=== PATIENT | female | born 1995 | race Caucasian/White ===

== ENCOUNTER 2019-11-17 10:50 | Outpatient (CLI) | payer BC ==
[~2019-11-17 10:50] MED LIST: LORTAB ELIX0.5 MG/ML PO
[2019-11-17] MEDS ORDERED: TUMS ULTRA ST1000 MG PO (11:10)
== END 2019-11-17 11:37 | disposition home or self-care (01) ==
LOC: CANPRECLI → LDRO 10:50 → LDR 10:50 → LDRO 10:52 → LDR 10:52 → LDRO 11:37
DX: O62.9 Abnormality of forces of labor, unspecified (principal); Z3A.39 39 weeks gestation of pregnancy
CPT/HCPCS: OP

== ENCOUNTER 2019-11-17 11:05 | Outpatient (CLI) | payer BC ==
[~2019-11-17] VITALS: Ht 157.5 cm; Wt 63.2 kg
--- NOTE | 2019-11-17 10:30 | NUR ---
Pt arrives on unit ambulatory. States pressure x2 days that has increased today. Denies LOF, vaginal bleeding and reports GFM. Changed into clean gown. EFM and toco applied. VSS. SVE per this RN . Admission assessment completed. Dr. Casarez notified. Reactive FHR strip. Orders to recheck SVE x1 hour. If no change pt ok to discharge and follow-up as scheduled. Pt updated on POC. No questions or concers at this time.
[2019-11-17] MEDS ORDERED: TUMS ULTRA ST1000 MG PO (11:10)
[2019-11-17 11:32] VITALS: BP 118/72; PULSE 89; TEMP 98.6
== END 2019-11-17 11:39 | disposition home or self-care (01) ==
LOC: LDRO 11:05
DX: O62.9 Abnormality of forces of labor, unspecified (principal); Z3A.39 39 weeks gestation of pregnancy

== ENCOUNTER → 2019-11-23 | Outpatient (CLI) | payer BC ==
[~2019-11-23] MED LIST changes: +IBU600 MG PO; +PERCOCET 325 MG1 TA2 PO; +TUMS ULTRA ST1000 MG PO
== END ==
LOC: COL.LAB 08:00
DX: Z20.828 Contact with and (suspected) exposure to other viral communicable diseases (principal)

== ENCOUNTER 2019-11-24 05:58 | Inpatient (IN) | payer BC ==
[2019-11-24] VITALS (59 sets, daily range): BP systolic 95–136; BP diastolic 54–89; PULSE 68–116; TEMP 97.5–98.2
[~2019-11-24] VITALS: Ht 157.5 cm; Wt 62.7 kg
[~2019-11-24 05:58] MED LIST changes: -IBU600 MG PO; -PERCOCET 325 MG1 TA2 PO
--- NOTE | 2019-11-24 07:20 | NUR ---
0720- Pt. ambulatory to the unit with mother by her side. Pt orientated to room and changed into gown. 0725- EFM and TOCO on and tracing. Pt. reports GFM, denies LOF, blood or contractions. Vitals taken, assessment completed, IV started and fluids running. Consents signed and plan for the day discussed. Questions answered, call light within reach.
[2019-11-24 09:06] LABS: BASO % 0.5 % (0.0-2.0); EOS # 0.1 (0.0-0.7); EOS % 1.5 % (0-4.0); GRAN # 5.8 (1.4-6.5); LYMPH # 1.8 (1.2-3.4); LYMPH % 21.1 % (20.0-51.0); MEAN CELL VOLUME 88 fl (80.0-100.0); MEAN CORPUSCULAR HEMOGLOBIN 29 pg (27.0-31.0); MEAN CORPUSCULAR HGB CONC 33 g/dl (33.0-37.0); MEAN PLATELET VOLUME 10.2 fl (7.4-10.4); MONO # 0.8 (0.1-0.6); MONO % 9.4 % (1.7-9.3); PLATELET COUNT 236 K/mm3 (130-400); RED BLOOD COUNT 4.12 M/mm3 (4.10-5.30); REDCELL DISTRIBUTION WIDTH-CV 12.9 % (11.5-14.5)
[2019-11-24 09:07] LABS: HEMATOCRIT 36.1 % (37.0-47.0)
--- NOTE | 2019-11-24 09:31 | NUR ---
09- Dr. Casarez to bedside. Plan for the day discussed. Bedside ultrasound done by provider. head noted to be down. RN remains at bedside. 922- Pt. up to the bathroom. 927- Pt. back in bed, EFM and TOCO on and tracing. Dr. Casarez back at bedside. 930- SVE /-2. AROM, small amount of clear fluid noted. Pt. tolerated procedure well. Provider discussed plan of the day again, questions answered. Call light within reach.
--- NOTE | 2019-11-24 10:35 | NUR ---
1016- Pt. up to the bathroom. RN at bedside. 1020- EFM and TOCO on and tracing. Maternal O2 on. Pt and room set up for epidural procedure. RN remains at bedside. 1023- SHAUN Jensen at the bedside. Discussed procedure and risk, answered questions. RN remains at bedside. 1034- Test dose administered, see anesthesia record. RN remains at bedside.
--- NOTE | 2019-11-24 18:20 | NUR ---
Report received from CLEMENTE Zelaya. Pt sitting up in bed. Emesis noted at this time. 1830: at bedside and reviews FHR strip. SVE 6/100/0 per provider. Pitocin increased to 10mus per verbal orders. Plan of care explained to pt and mother.
--- NOTE | 2019-11-24 19:50 | NUR ---
Pt called out stating she was feeling a lot of pressure. SVE 9/100/0. Pericare provided and pt repositioned to high fowlers, zaheer position. 1999: at nurses station and updated on pts status. See physican notification. 2018: SVE C/+1. Simeon removed and pt educated on pushing with contractions. 2022: Pt begins pushing with contractions with this RN. 2031: at nurses station and updated on pt moving vertex well. 2035: at bedside and pt pushes once with provider. Pt prepped for delivery after pushing and repositioned into footplates. 2041: Spontaneous delivery of viable female by . Pitocin stopped per protocol. Infant to mothers chest where dried and stimulated by nursery RN. Care of infant assumed by Frederick CORNEJO. 2044: Spontaneous delivery of placenta by . Pitocin resummed at 333mus/hr per protocol. Second degree laceration repaired by . Pericare provided,pads changed and ice pack applied. Pt repositioned in bed and plan of care and safety precautions explained to pt and mother who verbalize their understanding. See doctor dications and anesthesia records. Call light within reach.
[2019-11-25] VITALS: BP 100/56; PULSE 84; TEMP 98.1
[2019-11-25 04:00] VITALS: BP 104/58; PULSE 67; TEMP 97.9
[2019-11-25 07:23] LABS: HEMOGLOBIN 11.3 g/dl (12.5-16.0)
[2019-11-25 07:30] VITALS: BP 92/50; PULSE 74; TEMP 98
[2019-11-25 07:39] LABS: HEMATOCRIT 33.9 % (37.0-47.0)
[2019-11-25] MEDS ORDERED: IBU600 MG PO (09:59)
[2019-11-25] MEDS ORDERED: PERCOCET 325 MG1 TA2 PO (10:00)
[2019-11-25 12:30] VITALS: BP 100/57; PULSE 71; TEMP 98.5
[2019-11-25 17:00] VITALS: BP 103/60; PULSE 72; TEMP 98.3
[2019-11-25 18:58] VITALS: BP 103/61; PULSE 63; TEMP 98.4
== END 2019-11-25 22:10 | disposition home or self-care (01) | DRG 807 ==
LOC: LDR 05:58 → OB 11-25
PROVIDERS: ADMIT Obstetrics & Gynecology
PROC: 10E0XZZ Delivery of Products of Conception, External Approach (ICD-10-PCS; principal; 2019-11-24)
PROC: 0KQM0ZZ Repair Perineum Muscle, Open Approach (ICD-10-PCS; 2019-11-24)
PROC: 10907ZC Drainage of Amniotic Fluid, Therapeutic from Products of Conception, Via Natural or Artificial Opening (ICD-10-PCS; 2019-11-24)
DX: O36.5930 Maternal care for other known or suspected poor fetal growth, third trimester, not applicable or unspecified (principal); Z37.0 Single live birth; O70.1 Second degree perineal laceration during delivery; Z3A.40 40 weeks gestation of pregnancy
CPT/HCPCS: J2405; J2590; J7120

== ENCOUNTER → 2019-11-27 | Outpatient (CLI) | payer BC ==
[~2019-11-27] MED LIST changes: +IBU600 MG PO; +PERCOCET 325 MG1 TA2 PO
--- NOTE | 2019-11-27 13:11 | NUR ---
Pt, Socorro Christine, presents for outpatient consult with 3 day old baby girl, Aamir Christine; whom was referred by Dr. Khan because Aamir was at 10% wt. loss at her appt earlier this morning. Aamir was born by on [birth year] and weighed 6#2oz (2778 gms). At this consult she weighs 5#8.3oz (2504 gms). Pt reports she just started to feel her milk increase last noc. She tried pumping but "not much came out". Pt also reports in the last 24 hours Aamir has had 4 voids and 1 meconium stool. Also that Aamir eats 8+ times per 24 hours, giving signals for feedings. Aamir latches easily to the breast, LC advised pt to roll Aamir's lips and jaw open a little more after latched. Occassional swallows are noted. Pt's breasts are generally soft to palpation. After Aamir has a weight gain of 4gms. Pt consents to supplement and Aamir has an additional intake of 35 ml Similac. Impression: Delay in milk supply POC: 3 step feeding plan: Breastfeed, supplement 30-45ml EBM or formula and follow with pumping x10 minutes. Decrease supplement volume if/when pt feel more milk volume in the breast. F/U: Dr. Khan on SaturdayNovember 29, by telephone with this LC after that weight check. Questions invited and answered.
== END ==
LOC: LAC 12:49
DX: Z39.1 Encounter for care and examination of lactating mother (principal); Z71.89 Other specified counseling

== ENCOUNTER → 2020-12-04 | Outpatient (REF) | LOC: COL.LAB 11:15 | DX: Z20.822 Contact with and (suspected) exposure to COVID-19 (principal) ==